=== PATIENT | male | born 1970 | race Caucasian/White ===

== ENCOUNTER 2016-09-06 13:57 | Emergency (ER) | payer OTHER ==
[~2016-09-06] VITALS: Ht 182.9 cm; Wt 100.0 kg
[~2016-09-06 13:57] MED LIST: BACT800T5 PO; CEPH500C3 PO
[2016-09-06 13:58] VITALS: BP 152/87; PULSE 97; RESP 16; TEMP 97.8; O2SAT 99
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
== END 2016-09-06 15:03 | disposition home or self-care (01) ==
LOC: NEPD 13:57
DX: S01.01XD Laceration without foreign body of scalp, subsequent encounter (principal); Z48.02 Encounter for removal of sutures; V29.9XXD Motorcycle rider (driver) (passenger) injured in unspecified traffic accident, subsequent encounter
CPT/HCPCS: 99281